=== PATIENT | female | born 1985 | race Caucasian/White ===

== ENCOUNTER 2017-08-01 12:07 | Outpatient (CLI) | payer BC ==
[2017-08-01] VITALS (8 sets, daily range): BP systolic 105–147; BP diastolic 66–84; PULSE 63–83
[~2017-08-01] VITALS: Ht 170.2 cm; Wt 102.3 kg
[~2017-08-01 12:07] MED LIST: ACID REFLUX MED; ALBUTEROL0.09 MG/A1 IH; ALLEGRA-D 12 HO1 TER PO; ASPIRIN E.C. 8181 MG PO; BACTRIM DS 8001 TAB PO; BECLOMETHASONE; CEPHALEXIN500 M1 PO; CIPRO 100MG TA100 MG PO; COMPAZINE 110 MG/TAB PO; DEXILANT30 MG PO; DIAMOX 250MG250 MG PO; FLAGYL500 MG PO; FLONASE NASAL S16 GM NS; IUD BIRTH CONTROL; KEFLEX500 MG PO; LEVAQUIN 5500 MG/TAB PO; LEXAPRO20 MG PO; LORTAB 5/500 501 TAB PO; LORTAB 7.5/5001 TAB PO; MIDRIN; MOTRIN 200200 MG/TAB PO; MUCINEX1200 MG PO; NAPROSYN500 MG PO; NO HOME MEDICATIONS; NORCO 325 MG-51 TAB PO; NORCO 325 MG-7.1 TAB PO; PEPCID 20MG TAB20 MG PO; PERCOCET 325 MG1 TA2 PO; PHENERGAN 25 TA25 MG PO; PHENERGAN W/CO120 ML PO; PHENERGAN25 MG RC; PREDNISONE20 MG PO; PRILOSEC 20MG20 MG PO; PROTONIX 40MG T40 MG PO; SYMBACORT INHALER; TEGRETOL100 MG PO; TOPAMAX 25MG25 M1 PO; TYLENOL 325MG325 MG PO; ULTRAM 50MG TAB50 MG PO; VICODIN 5/5001 UDTAB PO; XANAX .25M0.25 MG/TA PO; ZOFRAN 4MG T4 MG/TAB PO; ZOFRAN8 MG PO; ZYRTEC 10MG10 MG PO; ZYRTEC-D 5 MG-11 TER PO
== END 2017-08-01 15:20 | disposition home or self-care (01) ==
LOC: COL.RAD 12:07
DX: G93.2 Benign intracranial hypertension (principal)

== ENCOUNTER 2017-11-13 09:38 | Outpatient (RCR) | payer OTHER ==
[~2017-11-13 09:38] MED LIST changes: +FLONASEALLERGY NS
[2018-01-07] MEDS ORDERED: VITAMIN B11000 MCG/M IM (14:22)
[2018-01-07] MEDS ORDERED: IMODIUM A-D2 MG PO (16:16)
[2018-01-09] MEDS ORDERED: ZOFRAN 4MG T4 MG/TAB PO (11:01)
== END 2018-02-04 | disposition home or self-care (01) ==
LOC: WSOH
DX: S70.12XA Contusion of left thigh, initial encounter (principal); M79.81 Nontraumatic hematoma of soft tissue; W22.09XA Striking against other stationary object, initial encounter; Y93.01 Activity, walking, marching and hiking; Y92.29 Other specified public building as the place of occurrence of the external cause; Y99.0 Civilian activity done for income or pay; Z79.1 Long term (current) use of non-steroidal anti-inflammatories (NSAID); Z79.82 Long term (current) use of aspirin; Z79.899 Other long term (current) drug therapy

== ENCOUNTER → 2017-11-13 | Outpatient (CLI) | payer BC | LOC: COL.VAS 11:15 | DX: M25.562 Pain in left knee (principal); M79.89 Other specified soft tissue disorders ==

== ENCOUNTER 2018-01-07 13:49 | Day surgery (SDC) | payer BC ==
[2009-06-21 12:49] VITALS: BP 141/76
[~2018-01-07] VITALS: Ht 170.2 cm; Wt 105.9 kg
[2018-01-07] MEDS ORDERED: VITAMIN B11000 MCG/M IM (14:22)
[2018-01-07 14:43] VITALS: BP 131/84; PULSE 76; TEMP 98.1
[2018-01-07 15:45] VITALS: BP 116/65; PULSE 80; TEMP 97.4
[2018-01-07 16:00] VITALS: BP 109/74; PULSE 66
[2018-01-07 16:15] VITALS: BP 105/72; PULSE 73
[2018-01-07] MEDS ORDERED: IMODIUM A-D2 MG PO (16:16)
[2018-01-07 16:30] VITALS: BP 108/75; PULSE 60
== END 2018-01-07 16:55 | disposition home or self-care (01) ==
LOC: SDCO 13:49
DX: K21.9 Gastro-esophageal reflux disease without esophagitis (principal); K44.9 Diaphragmatic hernia without obstruction or gangrene; R19.7 Diarrhea, unspecified; Z83.79 Family history of other diseases of the digestive system; Z79.82 Long term (current) use of aspirin; J45.909 Unspecified asthma, uncomplicated; K58.9 Irritable bowel syndrome, unspecified; Z80.0 Family history of malignant neoplasm of digestive organs; Z98.890 Other specified postprocedural states
CPT/HCPCS: J2250; J2405; J3010; J7030

== ENCOUNTER 2018-01-09 07:39 | Emergency (ER) | payer BC ==
[2009-06-21 12:49] VITALS: BP 141/76
[~2018-01-09] VITALS: Ht 170.2 cm; Wt 107.7 kg
[~2018-01-09 07:39] MED LIST changes: +IMODIUM A-D2 MG PO; +VITAMIN B11000 MCG/M IM
[2018-01-09 07:47] VITALS: BP 137/81; TEMP 99.6
[2018-01-09 08:22] LABS: BASO % 0.6 % (0.0-2.0); EOS # 0.2 (0.0-0.7); EOS % 3.5 % (0-4.0); GRAN # 2.7 (1.4-6.5); GRAN % 50.7 % (42.2-75.2); HEMATOCRIT 42.1 % (37.0-47.0); HEMOGLOBIN 14.3 g/dl (12.5-16.0); LYMPH % 38.1 % (20.0-51.0); MEAN CELL VOLUME 84 fl (80.0-100.0); MEAN CORPUSCULAR HEMOGLOBIN 29 pg (27.0-31.0); MEAN CORPUSCULAR HGB CONC 34 g/dl (33.0-37.0); MEAN PLATELET VOLUME 9.8 fl (7.4-10.4); MONO # 0.4 (0.1-0.6); MONO % 6.9 % (1.7-9.3); PLATELET COUNT 207 K/mm3 (130-400); RED BLOOD COUNT 5.01 M/mm3 (4.10-5.30); REDCELL DISTRIBUTION WIDTH-CV 12.6 % (11.5-14.5)
[2018-01-09 08:38] LABS: ALBUMIN 4.3 gm/dL (3.5-5.0); BILIRUBIN,TOTAL 2.1 mg/dL (0.0-1.0); CALCIUM 9.3 mg/dL (8.4-10.2); CREATININE, serum 0.77 mg/dL (0.52-1.25); POTASSIUM 3.6 mmol/L (3.4-5.0); TOTAL PROTEIN 7.3 gm/dL (6.4-8.2)
[2018-01-09 08:41] LABS: C-REACTIVE PROTEIN 0.5 mg/dL (0.0-0.9)
[2018-01-09 09:30] LABS: COLLECTION METHOD CLEAN CATCH
[2018-01-09 09:36] LABS: PH 6 (5-8); URINE APPEARANCE Clear; URINE BACTERIA Rare /hpf; URINE BILIRUBIN Negative (NEGATIVE); URINE BLOOD Negative (NEGATIVE); URINE COLOR Yellow; URINE GLUCOSE Negative (NEGATIVE); URINE KETONE Negative (NEGATIVE); URINE LEUKOCYTE ESTERASE Negative (NEGATIVE); URINE NITRATE Negative (NEGATIVE); URINE PROTEIN(semi-quant) Negative (NEGATIVE); URINE RBC 0-2 /hpf; URINE UROBILINOGEN Negative (NEGATIVE)
[2018-01-09] MEDS ORDERED: ZOFRAN 4MG T4 MG/TAB PO (11:01)
[2018-01-09 11:30] VITALS: PULSE 80
== END 2018-01-09 11:30 | disposition home or self-care (01) ==
LOC: COL.ER 07:39
PROVIDERS: Emergency Medicine
DX: R11.2 Nausea with vomiting, unspecified (principal); F41.9 Anxiety disorder, unspecified; K21.9 Gastro-esophageal reflux disease without esophagitis; Z90.49 Acquired absence of other specified parts of digestive tract; Z90.89 Acquired absence of other organs; Z79.82 Long term (current) use of aspirin
CPT/HCPCS: C9113; J0780; J2405; J2550; J7030

== ENCOUNTER → 2018-01-14 | Outpatient (CLI) | payer BC | LOC: COL.RAD 11:00 | DX: R10.9 Unspecified abdominal pain (principal); R11.2 Nausea with vomiting, unspecified | CPT/HCPCS: Q9967 ==

== ENCOUNTER 2018-02-10 12:56 | Emergency (ER) | payer BC, OTHER ==
[2009-06-21 12:49] VITALS: BP 141/76
[~2018-02-10] VITALS: Ht 170.2 cm; Wt 105.0 kg
[2018-02-10 13:02] VITALS: TEMP 98.4
[2018-02-10 14:19] LABS: BASO % 0.5 % (0.0-2.0); EOS # 0.1 (0.0-0.7); EOS % 2.4 % (0-4.0); GRAN # 3.4 (1.4-6.5); GRAN % 57.9 % (42.2-75.2); HEMATOCRIT 40.8 % (37.0-47.0); HEMOGLOBIN 13.8 g/dl (12.5-16.0); LYMPH # 1.9 (1.2-3.4); LYMPH % 32.9 % (20.0-51.0); MEAN CELL VOLUME 83 fl (80.0-100.0); MEAN CORPUSCULAR HEMOGLOBIN 28 pg (27.0-31.0); MEAN CORPUSCULAR HGB CONC 34 g/dl (33.0-37.0); MEAN PLATELET VOLUME 9.7 fl (7.4-10.4); MONO # 0.4 (0.1-0.6); PLATELET COUNT 194 K/mm3 (130-400); RED BLOOD COUNT 4.89 M/mm3 (4.10-5.30); REDCELL DISTRIBUTION WIDTH-CV 12.1 % (11.5-14.5)
[2018-02-10 14:38] LABS: BILIRUBIN,TOTAL 1.8 mg/dL (0.0-1.0); CREATININE, serum 0.79 mg/dL (0.52-1.25); POTASSIUM 3.7 mmol/L (3.4-5.0); TOTAL PROTEIN 6.8 gm/dL (6.4-8.2)
[2018-02-10 15:33] LABS: COLLECTION METHOD CLEAN CATCH
[2018-02-10 15:45] LABS: MUCOUS Present /lpf; PH 6 (5-8); URINE APPEARANCE Hazy; URINE BACTERIA Rare /hpf; URINE BILIRUBIN Negative (NEGATIVE); URINE BLOOD Negative (NEGATIVE); URINE COLOR Yellow; URINE GLUCOSE Negative (NEGATIVE); URINE KETONE Trace (NEGATIVE); URINE LEUKOCYTE ESTERASE Negative (NEGATIVE); URINE NITRATE Negative (NEGATIVE); URINE PROTEIN(semi-quant) Negative (NEGATIVE); URINE RBC 0-2 /hpf; URINE UROBILINOGEN Negative (NEGATIVE)
[2018-02-10] MEDS ORDERED: ZOFRAN ODT4 MG PO (15:56)
[2018-02-10 17:41] VITALS: BP 110/59; PULSE 58
[2018-02-11] MEDS ORDERED: PHENERGAN25 MG RC (15:54)
== END 2018-02-10 17:40 | disposition home or self-care (01) ==
LOC: COL.ER 12:56
PROVIDERS: Emergency Medicine
DX: K52.9 Noninfective gastroenteritis and colitis, unspecified (principal); K21.9 Gastro-esophageal reflux disease without esophagitis; Z90.49 Acquired absence of other specified parts of digestive tract; Z90.89 Acquired absence of other organs; Z98.890 Other specified postprocedural states; Z98.84 Bariatric surgery status; Z79.51 Long term (current) use of inhaled steroids; Z79.82 Long term (current) use of aspirin
CPT/HCPCS: C9113; J2405; J2765; J7030; Q9967

== ENCOUNTER 2018-02-11 11:29 | Emergency (ER) | payer BC, OTHER ==
[2009-06-21 12:49] VITALS: BP 141/76
[~2018-02-11] VITALS: Ht 170.2 cm; Wt 104.5 kg
[~2018-02-11 11:29] MED LIST changes: +ZOFRAN ODT4 MG PO
[2018-02-11 12:08] VITALS: BP 129/64; TEMP 98.2
[2018-02-11 13:45] LABS: BASO % 0.2 % (0.0-2.0); EOS % 0.3 % (0-4.0); GRAN # 4.5 (1.4-6.5); GRAN % 72.1 % (42.2-75.2); HEMATOCRIT 40.7 % (37.0-47.0); HEMOGLOBIN 13.5 g/dl (12.5-16.0); LYMPH # 1.4 (1.2-3.4); LYMPH % 21.7 % (20.0-51.0); MEAN CELL VOLUME 85 fl (80.0-100.0); MEAN CORPUSCULAR HEMOGLOBIN 28 pg (27.0-31.0); MEAN CORPUSCULAR HGB CONC 33 g/dl (33.0-37.0); MEAN PLATELET VOLUME 9.5 fl (7.4-10.4); MONO # 0.3 (0.1-0.6); MONO % 5.2 % (1.7-9.3); PLATELET COUNT 208 K/mm3 (130-400); RED BLOOD COUNT 4.79 M/mm3 (4.10-5.30)
[2018-02-11 13:55] LABS: ALANINE AMINOTRANSFERASE 40 U/L (9-52); ALBUMIN 4.1 gm/dL (3.5-5.0); ALKALINE PHOSPHATASE 74 U/L (50-136); ANION GAP 12 mmol/L (7-16); AST,SGOT 35 U/L (15-37); BILIRUBIN,TOTAL 1.6 mg/dL (0.0-1.0); BLOOD UREA NITROGEN 5 mg/dL (7-17); CARBON DIOXIDE 23 mmol/L (22-30); CHLORIDE 104 mmol/L (98-107); CREATININE, serum 0.71 mg/dL (0.52-1.25); GLUCOSE 112 mg/dL (74-106); POTASSIUM 3.6 mmol/L (3.4-5.0); SODIUM 139 mmol/L (137-145)
[2018-02-11 13:56] LABS: C-REACTIVE PROTEIN < 0.5 mg/dL (0.0-0.9)
[2018-02-11] MEDS ORDERED: PHENERGAN25 MG RC (15:54)
[2018-02-11 16:15] VITALS: PULSE 60
== END 2018-02-11 16:17 | disposition home or self-care (01) ==
LOC: COL.ER 11:29
PROVIDERS: Physician Assistant
DX: R11.10 Vomiting, unspecified (principal); Z79.82 Long term (current) use of aspirin; Z79.891 Long term (current) use of opiate analgesic; Z90.49 Acquired absence of other specified parts of digestive tract
CPT/HCPCS: J2060; J2405; J7030

== ENCOUNTER → 2018-02-18 | Outpatient (CLI) | payer BC | LOC: COL.RAD 09:48 | DX: K44.9 Diaphragmatic hernia without obstruction or gangrene (principal); K63.89 Other specified diseases of intestine ==

== ENCOUNTER → 2018-02-27 | Outpatient (CLI) | payer BC | LOC: COL.RAD 06:27 | DX: R11.2 Nausea with vomiting, unspecified (principal) | CPT/HCPCS: A9541 ==

== ENCOUNTER 2018-12-06 15:30 | Outpatient (RCR) | payer BC | END 2019-02-13 | LOC: MKS.ESL.PT | DX: N39.3 Stress incontinence (female) (male) (principal); N34.3 Urethral syndrome, unspecified; K59.00 Constipation, unspecified; N94.10 Unspecified dyspareunia ==

== ENCOUNTER 2019-12-12 13:42 | Emergency (ER) | payer BC ==
[2009-06-21 12:49] VITALS: BP 141/76
[~2019-12-12] VITALS: Ht 170.2 cm; Wt 111.4 kg
[2019-12-12 13:55] VITALS: TEMP 98.7
[2019-12-12] MEDS ORDERED: WELLBUTRIN SR150 M1 PO (14:52)
[2019-12-12 15:39] VITALS: BP 125/83; PULSE 75
== END 2019-12-12 15:48 | disposition home or self-care (01) ==
LOC: COL.ER 13:42
DX: U07.1 COVID-19 (principal); Z79.82 Long term (current) use of aspirin; Z90.710 Acquired absence of both cervix and uterus

== ENCOUNTER 2020-09-10 12:11 | Emergency (ER) | payer BC ==
[2009-06-21 12:49] VITALS: BP 141/76
[~2020-09-10] VITALS: Ht 170.2 cm; Wt 109.1 kg
[~2020-09-10 12:11] MED LIST changes: +WELLBUTRIN SR150 M1 PO
[2020-09-10 12:26] VITALS: TEMP 97
[2020-09-10 13:44] LABS: BASO % 0.6 % (0.0-2.0); EOS # 0.1 (0.0-0.7); EOS % 2.1 % (0-4.0); GRAN # 3.5 (1.4-6.5); GRAN % 55.7 % (42.2-75.2); HEMATOCRIT 40.7 % (37.0-47.0); HEMOGLOBIN 12.9 g/dl (12.5-16.0); LYMPH # 2.2 (1.2-3.4); LYMPH % 34.6 % (20.0-51.0); MEAN CELL VOLUME 82 fl (80.0-100.0); MEAN CORPUSCULAR HEMOGLOBIN 26 pg (27.0-31.0); MEAN CORPUSCULAR HGB CONC 32 g/dl (33.0-37.0); MEAN PLATELET VOLUME 9.9 fl (7.4-10.4); MONO # 0.4 (0.1-0.6); MONO % 6.8 % (1.7-9.3); PLATELET COUNT 245 K/mm3 (130-400); RED BLOOD COUNT 4.95 M/mm3 (4.10-5.30); REDCELL DISTRIBUTION WIDTH-CV 13.9 % (11.5-14.5)
[2020-09-10 13:57] LABS: ALBUMIN 4.4 gm/dL (3.5-5.0); BILIRUBIN,TOTAL 1.1 mg/dL (0.0-1.0); CALCIUM 9.2 mg/dL (8.4-10.2); CREATININE, serum 0.79 (0.52-1.25); POTASSIUM 3.8 mmol/L (3.4-5.0); TOTAL PROTEIN 7.4 gm/dL (6.4-8.2)
[2020-09-10 14:02] LABS: PROTHROMBIN TIME 10.6 SECONDS (9.7-12.8)
[2020-09-10 14:04] LABS: PARTIAL THROMBOPLASTIN TIME 22.1 SECONDS (26.0-37.0)
[2020-09-10 16:17] VITALS: BP 135/78; PULSE 88
== END 2020-09-10 15:20 | disposition home or self-care (01) ==
LOC: COL.ER 12:11
PROVIDERS: Physician Assistant
DX: G89.18 Other acute postprocedural pain (principal); G89.29 Other chronic pain; R10.9 Unspecified abdominal pain; Z90.49 Acquired absence of other specified parts of digestive tract; Z90.710 Acquired absence of both cervix and uterus; Z88.1 Allergy status to other antibiotic agents; Z79.82 Long term (current) use of aspirin
CPT/HCPCS: Q9967

== ENCOUNTER → 2021-02-23 | Outpatient (CLI) | payer BC | LOC: COL.RAD 09:36 | DX: K21.9 Gastro-esophageal reflux disease without esophagitis (principal); Z98.890 Other specified postprocedural states ==

== ENCOUNTER 2021-06-09 12:42 | Emergency (ER) | payer BC ==
[~2021-06-09] VITALS: Ht 170.2 cm; Wt 111.4 kg
[2021-06-09 13:03] VITALS: TEMP 98.1
[2021-06-09 13:45] LABS: COLLECTION METHOD CLEAN CATCH
[2021-06-09 13:54] LABS: PH 5 (5-8); SQUAMOUS EPITHELIAL 0-2 /hpf (0-10); URINE APPEARANCE Clear (CLEAR/HAZY); URINE BACTERIA Rare (NONE SEEN); URINE BILIRUBIN Negative (NEGATIVE); URINE BLOOD Negative (NEGATIVE); URINE COLOR Straw (YELLOW); URINE GLUCOSE Negative (NEGATIVE); URINE KETONE Negative (NEGATIVE); URINE LEUKOCYTE ESTERASE Negative (NEGATIVE); URINE NITRATE Negative (NEGATIVE); URINE PROTEIN(semi-quant) Negative (NEGATIVE); URINE RBC None Seen /hpf (0-2); URINE UROBILINOGEN Negative (NEGATIVE)
[2021-06-09 13:57] LABS: BASO % 0.5 % (0.0-2.0); EOS # 0.1 K/mm3 (0.0-0.7); EOS % 1.6 % (0-4.0); GRAN # 2.7 K/mm3 (1.4-6.5); GRAN % 43.6 % (42.2-75.2); HEMATOCRIT 41.3 % (37.0-47.0); HEMOGLOBIN 13.5 g/dl (12.5-16.0); LYMPH # 2.9 K/mm3 (1.2-3.4); LYMPH % 46.9 % (20.0-51.0); MEAN CELL VOLUME 83 fl (80.0-100.0); MEAN CORPUSCULAR HEMOGLOBIN 27 pg (27.0-31.0); MEAN CORPUSCULAR HGB CONC 33 g/dl (33.0-37.0); MEAN PLATELET VOLUME 9.8 fl (7.4-10.4); MONO # 0.4 K/mm3 (0.1-0.6); MONO % 7.2 % (1.7-9.3); PLATELET COUNT 272 K/mm3 (130-400); RED BLOOD COUNT 4.97 M/mm3 (4.10-5.30); REDCELL DISTRIBUTION WIDTH-CV 13.1 % (11.5-14.5)
[2021-06-09 14:17] LABS: ALANINE AMINOTRANSFERASE 20 U/L (0-55); ALKALINE PHOSPHATASE 113 U/L (40-150); ANION GAP 8 mmol/L (7-16); AST,SGOT 40 U/L (5-34); BILIRUBIN,TOTAL 1.4 mg/dL (0.2-1.2); BLOOD UREA NITROGEN 13 mg/dL (7-19); CALCIUM 8.8 mg/dL (8.4-10.2); CARBON DIOXIDE 30 mmol/L (22-29); CHLORIDE 103 mmol/L (98-107); CREATININE, serum 0.78 mg/dL (0.57-1.11); GLUCOSE 149 mg/dL (70-99); SODIUM 141 mmol/L (136-145); TOTAL PROTEIN 6.4 gm/dL (6.2-8.1)
[2021-06-09 14:38] LABS: TSH w REFLEX 0.718 uIU/mL (0.350-4.940)
[2021-06-09 14:41] LABS: TROPONIN-I < 0.010 ng/mL (0.00-0.033)
[2021-06-09 14:44] VITALS: BP 139/98; PULSE 96
== END 2021-06-09 14:44 | disposition home or self-care (01) ==
LOC: COL.ER 12:42
PROVIDERS: Emergency Medicine
DX: I10 Essential (primary) hypertension (principal)

== ENCOUNTER 2021-06-29 09:36 | Outpatient (CLI) | payer BC ==
[2009-06-21 12:49] VITALS: BP 141/76
[2021-06-29] VITALS (9 sets, daily range): BP systolic 116–144; BP diastolic 62–78; PULSE 59–80; TEMP 98.2
[~2021-06-29] VITALS: Ht 170.2 cm; Wt 109.0 kg
[2021-06-29] MEDS ORDERED: WELLBUTRIN XL150 MG PO (11:22)
[2021-06-29] MEDS ORDERED: PULMICORT0.5 MG/2 M IH (11:22)
[2021-06-29] MEDS ORDERED: FLEXERIL 1010 MG/TAB PO (11:23)
[2021-06-29] MEDS ORDERED: MASON NATURAL2000 IU PO (11:23)
[2021-06-29] MEDS ORDERED: ZYRTEC 10MG10 MG PO (11:23)
[2021-06-29] MEDS ORDERED: EPIPEN 2-PAK1 MG/ML IM (11:24)
[2021-06-29] MEDS ORDERED: COLACE 100100 MG/CAP PO (11:24)
[2021-06-29] MEDS ORDERED: PEPCID 20MG TAB20 MG PO (11:25)
[2021-06-29] MEDS ORDERED: ESTRACE0.1 MG/GM VG (11:25)
[2021-06-29] MEDS ORDERED: FLONASEALLERGY NS (11:33)
[2021-06-29] MEDS ORDERED: ROBITUSSIN A-C S1 M1 PO (11:34)
[2021-06-29] MEDS ORDERED: ATIVAN 0.50.5 MG/TAB PO (11:35)
[2021-06-29] MEDS ORDERED: PRIL40 PO (11:36)
[2021-06-29] MEDS ORDERED: SINGULAIR 110 MG/TAB PO (11:36)
[2021-06-29] MEDS ORDERED: MIRALAX PA17 GM/Dose PO (11:37)
[2021-06-29] MEDS ORDERED: PREDNISONE10 MG PO (11:38)
[2021-06-29] MEDS ORDERED: BIOTIN10000 MC1 PO (11:39)
[2021-06-29] MEDS ORDERED: B-121000 MCG PO (11:39)
--- NOTE | 2021-06-29 13:20 | NUR ---
Pt tolerated infusion and 1 hr monitoring period without issue. INT DC'd with catheter intact. She is escorted out to ED entrance with steady gait.
== END 2021-06-29 13:29 | disposition home or self-care (01) ==
LOC: EUO 09:36
DX: U07.1 COVID-19 (principal); E66.9 Obesity, unspecified
CPT/HCPCS: M0245

== ENCOUNTER 2022-01-21 11:38 | Emergency (ER) | payer BC ==
[~2022-01-21] VITALS: Ht 170.2 cm; Wt 114.5 kg
[~2022-01-21 11:38] MED LIST changes: +ATIVAN 0.50.5 MG/TAB PO; +B-121000 MCG PO; +BIOTIN10000 MC1 PO; +COLACE 100100 MG/CAP PO; +EPIPEN 2-PAK1 MG/ML IM; +ESTRACE0.1 MG/GM VG; +FLEXERIL 1010 MG/TAB PO; +MASON NATURAL2000 IU PO; +MIRALAX PA17 GM/Dose PO; +PREDNISONE10 MG PO; +PRIL40 PO; +PULMICORT0.5 MG/2 M IH; +ROBITUSSIN A-C S1 M1 PO; +SINGULAIR 110 MG/TAB PO; +WELLBUTRIN XL150 MG PO
[2022-01-21 11:45] VITALS: BP 130/83; TEMP 98.8
[2022-01-21 12:34] LABS: BASO % 0.5 % (0.0-2.0); EOS # 0.2 K/mm3 (0.0-0.7); EOS % 2.9 % (0.0-4.0); GRAN # 2.9 K/mm3 (1.4-6.5); GRAN % 46.5 % (42.2-75.2); HEMATOCRIT 40.3 % (37.0-47.0); HEMOGLOBIN 12.8 g/dl (12.5-16.0); LYMPH # 2.7 K/mm3 (1.2-3.4); LYMPH % 43.2 % (20.0-51.0); MEAN CELL VOLUME 80 fl (80.0-100.0); MEAN CORPUSCULAR HEMOGLOBIN 25 pg (27-31); MEAN CORPUSCULAR HGB CONC 32 g/dl (33.0-37.0); MEAN PLATELET VOLUME 9.6 fl (7.4-10.4); MONO # 0.4 K/mm3 (0.1-0.6); MONO % 6.6 % (1.7-9.3); PLATELET COUNT 259 K/mm3 (130-400); RED BLOOD COUNT 5.03 M/mm3 (4.10-5.30); REDCELL DISTRIBUTION WIDTH-CV 14.1 % (11.5-14.5)
[2022-01-21 12:51] LABS: BILIRUBIN,TOTAL 0.8 mg/dL (0.2-1.2); CALCIUM 9.9 mg/dL (8.4-10.2); CREATININE, serum 0.83 mg/dL (0.57-1.11); TOTAL PROTEIN 6.9 gm/dL (6.2-8.1)
[2022-01-21 13:29] VITALS: PULSE 84
== END 2022-01-21 13:29 | disposition home or self-care (01) ==
LOC: COL.ER 11:38
PROVIDERS: Nurse Practitioner
DX: M79.661 Pain in right lower leg (principal); Z79.82 Long term (current) use of aspirin; Z91.040 Latex allergy status

== ENCOUNTER → 2022-02-15 | Outpatient (CLI) | payer BC | LOC: COL.RAD 10:46 | DX: K44.9 Diaphragmatic hernia without obstruction or gangrene (principal); Z90.49 Acquired absence of other specified parts of digestive tract; Z90.89 Acquired absence of other organs; Z90.710 Acquired absence of both cervix and uterus | CPT/HCPCS: Q9967 ==

== ENCOUNTER 2022-11-28 15:20 | Emergency (ER) | payer BC ==
[~2022-11-28] VITALS: Ht 170.2 cm; Wt 95.0 kg
[2022-11-28 16:08] VITALS: TEMP 98.2
[2022-11-28 17:18] VITALS: BP 126/72; PULSE 80
== END 2022-11-28 17:18 | disposition home or self-care (01) ==
LOC: COL.ER 15:20
DX: B34.9 Viral infection, unspecified (principal); R06.02 Shortness of breath; Z86.16 Personal history of COVID-19; Z91.040 Latex allergy status

== ENCOUNTER 2024-01-31 11:00 | Emergency (ER) | payer BC, OTHER ==
[~2024-01-31] VITALS: Ht 170.2 cm; Wt 76.4 kg
[2024-01-31 11:07] VITALS: TEMP 98.3
[2024-01-31 12:02] LABS: HEMATOCRIT 41.7 % (37.0-47.0); HEMOGLOBIN 13.7 g/dl (12.5-16.0); MEAN CELL VOLUME 86 fl (80.0-100.0); MEAN CORPUSCULAR HEMOGLOBIN 28 pg (27-31); MEAN CORPUSCULAR HGB CONC 33 g/dl (33.0-37.0); MEAN PLATELET VOLUME 9.3 fl (7.4-10.4); PLATELET COUNT 210 K/mm3 (130-400); RED BLOOD COUNT 4.84 M/mm3 (4.10-5.30); REDCELL DISTRIBUTION WIDTH-CV 12.3 % (11.5-14.5)
[2024-01-31 12:09] LABS: ERYTHROCYTE SEDIMENTATION RATE < 1 mm/hr (0-20)
[2024-01-31 12:26] LABS: ALANINE AMINOTRANSFERASE 28 U/L (0-55); ALKALINE PHOSPHATASE 69 U/L (40-150); ANION GAP 9 mmol/L (7-16); AST,SGOT 17 U/L (5-34); BILIRUBIN,TOTAL 2.1 mg/dL (0.2-1.2); BLOOD UREA NITROGEN 8 mg/dL (7-19); CALCIUM 9.1 mg/dL (8.4-10.2); CHLORIDE 110 mEq/L (98-107); CREATININE, serum 0.75 mg/dL (0.57-1.11); GLUCOSE 81 mg/dL (70-99); POTASSIUM 3.6 mEq/L (3.5-4.5); SODIUM 139 mEq/L (136-145); TOTAL PROTEIN 6.4 g/dl (6.2-8.1)
[2024-01-31 12:28] LABS: C-REACTIVE PROTEIN < 0.02 mg/dL (0.00-0.50)
[2024-01-31] MEDS ORDERED: NS 100 ML IV SCH (13:11)
[2024-01-31] MEDS ORDERED: Iohexol 300 - 100 ML VIAL IV ONE (13:11)
[2024-01-31] MEDS ORDERED: NEURONTIN300 MG/CAP PO (17:15)
[2024-01-31 17:17] VITALS: BP 116/75; PULSE 67
== END 2024-01-31 17:30 | disposition home or self-care (01) ==
LOC: COL.ER 11:00
PROVIDERS: Family Medicine
DX: G62.9 Polyneuropathy, unspecified (principal); Z86.69 Personal history of other diseases of the nervous system and sense organs; Z91.040 Latex allergy status
CPT/HCPCS: Q9967